=== PATIENT | female | born 1955 | race Caucasian/White ===

== ENCOUNTER 2018-03-23 15:08 | Emergency (ER) | payer BC ==
[2018-03-23] MEDS ORDERED: Iopamidol 612 MG/ML 75 ML Bottle IV PRN (15:30)
[2018-03-23] MEDS ORDERED: Sodium Chloride 0.9% 50 ML IV SCH (15:30)
[2018-03-23] MEDS ORDERED: Sodium Chloride 0.9% 1,000 ML IV ONE (15:34)
--- NOTE | 2018-03-23 15:40 | EDM.PDOC ---
ED HPI GENERAL MEDICAL PROBLEM - General Chief Complaint: Fever Stated Complaint: UTI Time Seen by Provider: 03/23/18 15:21 Source of Information: Reports: Patient History Limitations: Reports: No Limitations - History of Present Illness INITIAL COMMENTS - FREE TEXT/NARRATIVE: Patient presents with low abdominal and low back pain, dysuria and left flank pain, fever and nausea worsening today. Temp at home was 102.1 and 102.7 today. Four days ago she saw her PCP and was diagnosed with a UTI which she is treating with Bactrim DS bid. There has been no improvement in symptoms and today they are worse. She also has a headache today. 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 (see below) Other Treatments AIRCRAFT SYSTEMS TECHNICIAN: antibiotics Headache Pain Score (Numeric/FACES): 8 Lower Back Pain Score (Numeric/FACES): 8 - Related Data Allergies Allergy/AdvReac Type Severity Reaction Status Date / Time No Known Allergies Allergy Verified 03/23/18 15:20 Home Meds: Home Meds Lisinopril 40 mg PO BEDTIME 03/23/18 [History] Simvastatin [Zocor] 40 mg PO BEDTIME 03/23/18 [History] Sulfamethoxazole/Trimethoprim [Sulfamethoxazole-Tmp Ds Tablet] 1 tab PO BID 07/31 [History] Venlafaxine HCl [Venlafaxine ER] 150 mg PO BEDTIME 03/23/18 [History] rOPINIRole [Requip] 2 mg PO BID 03/23/18 [History] Social & Family History - Tobacco Use Smoking Status *Q: Never Smoker Second Hand Smoke Exposure: No - Caffeine Use Caffeine Use: Reports: Coffee, Soda - Recreational Drug Use Recreational Drug Use: No ED ROS GENERAL - Review of Systems Review Of Systems: See Below Constitutional: Reports: Fever, Malaise. Denies: Decreased Appetite HEENT: Reports: No Symptoms Respiratory: Reports: No Symptoms. Denies: Shortness of Breath, Cough Cardiovascular: Reports: Lightheadedness. Denies: Chest Pain, Syncope GI/Abdominal: Reports: Abdominal Pain, Nausea. Denies: Constipation, Diarrhea, Vomiting : Reports: Dysuria, Flank Pain, Frequency, Incontinence (nearly but gets there in time) Musculoskeletal: Reports: No Symptoms Skin: Reports: No Symptoms. Denies: Cyanosis, Jaundice, Mottled, Pallor, Diaphoresis, Erythema, Wound, Lesions Neurological: Reports: Headache. Denies: Confusion, Dizziness, Seizure, Syncope Psychiatric: Denies: Agitation, Anxiety, Confusion ED EXAM, GI/ABD - Physical Exam Exam: See Below Exam Limited By: No Limitations General Appearance: Alert, WD/WN, No Apparent Distress Eyes: Bilateral: Normal Appearance, EOMI Ears: Normal External Exam, Hearing Grossly Normal Nose: Normal Inspection, No Blood Throat/Mouth: Normal Inspection, Normal Lips, Normal Voice, No Airway Compromise Head: Atraumatic, Normocephalic Neck: Normal Inspection, Full Range of Motion Respiratory/Chest: No Respiratory Distress, Lungs Clear, Normal Breath Sounds, No Accessory Muscle Use Cardiovascular: Regular Rate, Rhythm, No Murmur, No Rub GI/Abdominal Exam: Normal Bowel Sounds, No Organomegaly, No Distention, No Abnormal Bruit, Tender (suprapubic, LUQ). No: Guarding, Rigid Back Exam: Full Range of Motion, CVA Tenderness (L), Paraspinal Tenderness ( across lower lumbar). No: CVA Tenderness (R) Extremities: Normal Inspection, Normal Range of Motion Neurological: Alert, Oriented, Normal Cognition, No Motor/Sensory Deficits Psychiatric: Normal Affect, Normal Mood Skin Exam: Warm, Dry, Intact, Normal Color, No Rash Course - Vital Signs Last Recorded V/S: Last Vital Signs Temp 100.8 F H 03/23/18 18:50 Pulse 93 03/23/18 15:16 Resp 16 03/23/18 15:16 BP 119/69 03/23/18 15:16 Pulse Ox 99 03/23/18 15:16 - Orders/Labs/Meds Orders: Active Orders 24 hr Category Date Time Status Abdomen Pelvis w Cont [CT] Stat Exams 03/23/18 15:33 Ordered Head wo Cont [CT] Stat Exams 03/23/18 16:32 Ordered CULTURE BLOOD [BC] Stat Lab 03/23/18 15:33 Ordered CULTURE BLOOD [BC] Stat Lab 03/23/18 15:33 Ordered UA W/MICROSCOPIC [URIN] Stat Lab 03/23/18 15:32 Ordered Blood Culture x2 Reflex Set [OM.PC] Stat Oth 03/23/18 15:32 Ordered Labs: Laboratory Tests 03/23/18 03/23/18 03/23/18 Range/Units 15:55 15:55 15:55 WBC 3.6 L (5.0-10.0) 10^3/uL RBC 4.80 (3.80-5.50) 10^6/uL Hgb 13.4 (12.0-16.0) g/dL Hct 40.4 (37.0-47.0) % MCV 84.0 (82.0-92.0) fL MCH 27.9 (27.0-31.0) pg MCHC 33.2 (32.0-36.0) g/dL RDW 12.4 (11.5-14.5) % Plt Count 173 (150-300) 10^3/uL MPV 7.8 (7.4-10.4) fL Neut % (Auto) Soft Sugar Operator Head Lymph % (Auto) Soft Sugar Operator Head [place] % (Auto) Soft Sugar Operator Head Eos % (Auto) Soft Sugar Operator Head Baso % (Auto) Soft Sugar Operator Head Neut # (Auto) Soft Sugar Operator Head Lymph # (Auto) Soft Sugar Operator Head [place] # (Auto) Soft Sugar Operator Head Eos # (Auto) Soft Sugar Operator Head Baso # (Auto) Soft Sugar Operator Head Add Manual Diff Yes Neutrophils % (Manual) 68 (50-70) % Band Neutrophils % 10 (4-12) % Lymphocytes % (Manual) 10 L (20-40) % Monocytes % (Manual) 6 (2-8) % Eosinophils % (Manual) 6 H (1-3) % Sodium 138 (136-145) mmol/L Potassium 4.5 (3.3-5.3) mmol/L Chloride 103 (98-115) mmol/L Carbon Dioxide 26.5 (21.0-32.0) mmol/L BUN 14 (6-25) mg/dL Creatinine 0.84 (0.51-1.17) mg/dL Est Cr Clr Drug Dosing 64.17 mL/min Estimated GFR (MDRD) > 60 mL/min Glucose 108 (70-110) mg/dL Lactic Acid 1.5 (0.4-2.0) mmol/L Calcium 8.9 (8.7-10.3) mg/dL Total Bilirubin 0.4 (0.2-1.0) mg/dL AST 10 L (15-37) U/L ALT 16 (12-78) U/L Alkaline Phosphatase 132 H (46-116) IU/L Total Protein 7.0 (6.4-8.2) g/dL Albumin 3.64 (3.00-4.80) g/dL Lipase 112 (73-393) U/L Specimen Type Urine Color (YELLOW) Urine Appearance (CLEAR) Urine pH (5.0-9.0) Ur Specific [place] (1.005-1.030) Urine Protein (NEGATIVE) mg/dL Urine Glucose (UA) (NEGATIVE) mg/dL Urine Ketones (NEGATIVE) mg/dL Urine Occult Blood (NEGATIVE) Urine Nitrite (NEGATIVE) Urine Bilirubin (NEGATIVE) Urine Urobilinogen (0.2-1.0) E.U./dL Ur Leukocyte Esterase (NEGATIVE) Urine RBC /HPF Urine WBC /HPF Ur Epithelial Cells /LPF Urine Bacteria (NONE TO FEW) /HPF 03/23/18 Range/Units 16:27 WBC (5.0-10.0) 10^3/uL RBC (3.80-5.50) 10^6/uL Hgb (12.0-16.0) g/dL Hct (37.0-47.0) % MCV (82.0-92.0) fL MCH (27.0-31.0) pg MCHC (32.0-36.0) g/dL RDW (11.5-14.5) % Plt Count (150-300) 10^3/uL MPV (7.4-10.4) fL Neut % (Auto) Lymph % (Auto) [place] % (Auto) Eos % (Auto) Baso % (Auto) Neut # (Auto) Lymph # (Auto) [place] # (Auto) Eos # (Auto) Baso # (Auto) Add Manual Diff Neutrophils % (Manual) (50-70) % Band Neutrophils % (4-12) % Lymphocytes % (Manual) (20-40) % Monocytes % (Manual) (2-8) % Eosinophils % (Manual) (1-3) % Sodium (136-145) mmol/L Potassium (3.3-5.3) mmol/L Chloride (98-115) mmol/L Carbon Dioxide (21.0-32.0) mmol/L BUN (6-25) mg/dL Creatinine (0.51-1.17) mg/dL Est Cr Clr Drug Dosing mL/min Estimated GFR (MDRD) mL/min Glucose (70-110) mg/dL Lactic Acid (0.4-2.0) mmol/L Calcium (8.7-10.3) mg/dL Total Bilirubin (0.2-1.0) mg/dL AST (15-37) U/L ALT (12-78) U/L Alkaline Phosphatase (46-116) IU/L Total Protein (6.4-8.2) g/dL Albumin (3.00-4.80) g/dL Lipase (73-393) U/L Specimen Type Urinmid Urine Color Yellow (YELLOW) Urine Appearance Clear (CLEAR) Urine pH 5.0 (5.0-9.0) Ur Specific [place] >= 1.030 (1.005-1.030) Urine Protein Negative (NEGATIVE) mg/dL Urine Glucose (UA) Negative (NEGATIVE) mg/dL Urine Ketones 15 H (NEGATIVE) mg/dL Urine Occult Blood Small H (NEGATIVE) Urine Nitrite Negative (NEGATIVE) Urine Bilirubin Negative (NEGATIVE) Urine Urobilinogen 1.0 (0.2-1.0) E.U./dL Ur Leukocyte Esterase Negative (NEGATIVE) Urine RBC 5-10 H /HPF Urine WBC 0-5 /HPF Ur Epithelial Cells Few /LPF Urine Bacteria Few (NONE TO FEW) /HPF Meds: Medications Discontinued Medications Generic Name Dose Route Start Last Admin Trade Name Freq PRN Reason Stop Dose Admin Acetaminophen 1,000 mg 03/23/18 18:15 03/23/18 18:20 Tylenol Extra Strength PO 03/23/18 18:16 1,000 mg ONETIME ONE Administration Diphenhydramine HCl 50 mg 03/23/18 19:07 03/23/18 19:26 Benadryl IVPUSH 03/23/18 19:08 50 mg ONETIME ONE Administration Sodium Chloride 1,000 mls @ 999 mls/hr 03/23/18 15:34 03/23/18 15:45 Normal Saline IV 03/23/18 16:34 999 mls/hr .BOLUS ONE Administration Ketorolac Tromethamine 30 mg 03/23/18 19:07 03/23/18 19:19 Toradol IVPUSH 03/23/18 19:08 30 mg ONETIME ONE Administration Ondansetron HCl 4 mg 03/23/18 19:07 03/23/18 19:21 Zofran IVPUSH 03/23/18 19:08 4 mg ONETIME ONE Administration - Re-Assessments/Exams Free Text/Narrative Re-Assessment/Exam: 03/23/18 16:32 CBC and BMP are okay, WBC is low at 3.6. UA pending. Patient says nausea is not bad but her headache is still bad. She says this is the worst headache she has ever had. She doesn't get headaches or migraines. She rates it at 7/10 now. We will get a head CT as well as the CT abd/pelvis. 03/23/18 19:19 CTs of head, abd/pelvis are negative for acute findings. Headache is unchanged after 1 gm of Tylenol for the fever but temp is down from 102 to 100.8 now. Will give migraine cocktail now. Lab ran manual diff to give me percentage of bands which are normal at 10%. 03/23/18 20:02 Headache is down to 4/10. Discussed case with Marily Mays NP who is okay with patient going home with follow up tomorrow in clinic or in two days, since Rosalinda is out tomorrow, as long as she isn't worse. Discussed findings and plan with patient who is agreeable with this. Temp is down to 100.2 Departure - Departure Time of Disposition: 20:00 Disposition: Home, Self-Care 01 Condition: Good Clinical Impression: FUO (fever of unknown origin), Headache above the eye region - Discharge Information Referrals: Rosalinda Horowitz PA-C [Primary Care Provider] - Forms: ED Department Discharge Additional Instructions: 1. Drink 8 cups of water daily. 2. Continue your Bactrim until completed. 3. Follow up with your PCP in 1-2 days. 4. Recheck FRED if worsening. - My Orders Last 24 Hours: My Active Orders 03/23/18 15:32 UA W/MICROSCOPIC [URIN] Stat Blood Culture x2 Reflex Set [OM.PC] Stat 03/23/18 15:33 Abdomen Pelvis w Cont [CT] Stat CULTURE BLOOD [BC] Stat CULTURE BLOOD [BC] Stat 03/23/18 16:32 Head wo Cont [CT] Stat - Assessment/Plan Last 24 Hours: My Active Orders 03/23/18 15:32 UA W/MICROSCOPIC [URIN] Stat Blood Culture x2 Reflex Set [OM.PC] Stat 03/23/18 15:33 Abdomen Pelvis w Cont [CT] Stat CULTURE BLOOD [BC] Stat CULTURE BLOOD [BC] Stat 03/23/18 16:32 Head wo Cont [CT] Stat
[2018-03-23 16:26] LABS: CHLORIDE,CL 103 mmol/L (98-115); SODIUM,NA 138 mmol/L (136-145)
[2018-03-23] MEDS ORDERED: Acetaminophen 500 MG Tab PO ONE (18:15)
[2018-03-23] MEDS ORDERED: diphenhydrAMINE 50 MG/ML SDV IVPUSH ONE (19:07)
[2018-03-23] MEDS ORDERED: Ketorolac 30 MG/ML SDV IVPUSH ONE (19:07)
[2018-03-23] MEDS ORDERED: Ondansetron 4 MG/2 ML SDV IVPUSH ONE (19:07)
== END 2018-03-23 20:25 | disposition home or self-care (01) ==
LOC: KA.ED 15:08
DX: R50.9 Fever, unspecified (principal); R51 Headache
CPT/HCPCS: 70450; 74177; 80053; 81001; 83605; 83690; 85025; 87040; 96361; 96374; 96375; 99284; A9270; J1200; J1885; J2405; J7030; J7050; Q9967

== ENCOUNTER 2020-02-16 10:13 | Emergency (ER) | payer MEDICARE, BC, OTHER ==
[2020-02-16] MEDS ORDERED: Sodium Chloride 0.9% 1,000 ML IV ONE (10:48)
[2020-02-16] MEDS ORDERED: Ondansetron 4 MG/2 ML SDV IVPUSH ONE (10:52)
--- NOTE | 2020-02-16 11:02 | EDM.PDOC ---
ED HPI GENERAL MEDICAL PROBLEM - General Chief Complaint: General Stated Complaint: FEVER/BODY ACHES Time Seen by Provider: 02/16/20 10:35 Source of Information: Reports: Patient History Limitations: Reports: No Limitations - History of Present Illness INITIAL COMMENTS - FREE TEXT/NARRATIVE: 64 YO WF presents to ER with complaints of fever/chills and body aches which began 4 days ago. Pt reports she was outside all day on Saturday02/12/2020 with her grandson and that evening developed fever/chills but related it to sun exposure at that time. Pt reports she feels weak, nauseated, with joint pain and fever/chills. Pt denies cough/congestion, no shortness of breath, no chest or back pain, no dysuria or urinary frequency. Pt denies abdominal pain or headache/neck pain. Pt with PMH of HTN, Dyslipidemia, Restless leg syndrome. Onset Date: 02/12/20 Duration: Day(s): (4) Location: Reports: Generalized Quality: Reports: Ache Severity: Mild Improves with: Reports: None Worsens with: Reports: None Associated Symptoms: Reports: Fever/Chills, Malaise, Nausea/Vomiting, Weakness. 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 Pain Score (Numeric/FACES): 3 - Related Data Allergies Allergy/AdvReac Type Severity Reaction Status Date / Time No Known Allergies Allergy Verified 02/16/20 10:50 Home Meds: Home Meds Lisinopril 40 mg PO BEDTIME 03/23/18 [History] Venlafaxine HCl [Venlafaxine ER] 150 mg PO BEDTIME 03/23/18 [History] rOPINIRole [Requip] 2 mg PO BID 03/23/18 [History] Aspirin [Aspirin EC] 81 mg PO DAILY 02/16/20 [History] Simvastatin [Zocor] 30 mg PO BEDTIME 02/16/20 [History] hydroCHLOROthiazide [Hydrochlorothiazide] 25 mg PO DAILY 02/16/20 [History] Past Medical History HEENT History: Reports: Impaired Vision Cardiovascular History: Reports: High Cholesterol, Hypertension Gastrointestinal History: Reports: None Genitourinary History: Reports: None Musculoskeletal History: Reports: Arthritis Neurological History: Reports: None Psychiatric History: Reports: None - Infectious Disease History Infectious Disease History: Reports: Chicken Pox, Measles, Mumps - Past Surgical History Head Surgeries/Procedures: Reports: None Cardiovascular Surgical History: Reports: None GI Surgical History: Reports: Appendectomy, Cholecystectomy, Colonoscopy Female Surgical History: Reports: Section Neurological Surgical History: Reports: None Musculoskeletal Surgical History: Reports: Arthroscopic Knee Dermatological Surgical History: Reports: None Social & Family History - Family History Family Medical History: Noncontributory - Caffeine Use Caffeine Use: Reports: Coffee, Soda ED ROS GENERAL - Review of Systems Review Of Systems: See Below Constitutional: Reports: Fever, Chills, Malaise, Weakness. Denies: Night Sweats HEENT: Reports: No Symptoms Respiratory: Reports: No Symptoms Cardiovascular: Reports: No Symptoms Endocrine: Reports: No Symptoms GI/Abdominal: Reports: Nausea. Denies: Abdominal Pain, Black Stool, Bloody Stool, Constipation, Diarrhea : Reports: No Symptoms Musculoskeletal: Reports: Leg Pain, Joint Pain, Muscle Pain. Denies: Back Pain Skin: Reports: No Symptoms Neurological: Reports: No Symptoms Psychiatric: Reports: No Symptoms Hematologic/Lymphatic: Reports: No Symptoms Immunologic: Reports: No Symptoms ED EXAM, GENERAL - Physical Exam Exam: See Below Exam Limited By: No Limitations General Appearance: Alert, WD/WN, No Apparent Distress Eye Exam: Bilateral Eye: PERRL Ears: Normal External Exam, Normal Canal, Hearing Grossly Normal, Normal TMs Nose: Normal Inspection, Normal Mucosa, No Blood Throat/Mouth: Normal Inspection, Normal Lips, Normal Teeth, Normal Gums, Normal Oropharynx, Normal Voice, No Airway Compromise Head: Atraumatic, Normocephalic Neck: Normal Inspection, Supple, Non-Tender, Full Range of Motion Respiratory/Chest: No Respiratory Distress, Lungs Clear, Normal Breath Sounds, No Accessory Muscle Use, Chest Non-Tender Cardiovascular: Normal Peripheral Pulses, Regular Rate, Rhythm, No Edema, No Gallop, No JVD, No Murmur, No Rub GI/Abdominal: Normal Bowel Sounds, Soft, Non-Tender, No Organomegaly, No Distention, No Abnormal Bruit, No Mass Back Exam: Normal Inspection, Full Range of Motion, NT Extremities: Normal Inspection, Normal Range of Motion, Non-Tender, Normal Capillary Refill, No Pedal Edema Neurological: Alert, Oriented, CN II-XII Intact, Normal Cognition, Normal Gait, Normal Reflexes, No Motor/Sensory Deficits Psychiatric: Normal Affect, Normal Mood Skin Exam: Warm, Dry, Intact, Normal Color, No Rash Lymphatic: No Adenopathy Course - Vital Signs Last Recorded V/S: Last Vital Signs Temp 37.4 C 02/16/20 11:54 Pulse 78 02/16/20 11:54 Resp 14 02/16/20 11:54 BP 125/74 02/16/20 11:54 Pulse Ox 97 02/16/20 11:54 - Orders/Labs/Meds Orders: Active Orders 24 hr Category Date Time Status CORONAVIRUS COVID-19 PCR PHL Stat Lab 02/16/20 10:48 Ordered Isolation [COMM] Routine Oth 02/16/20 10:48 Ordered Labs: Laboratory Tests 02/16/20 02/16/20 02/16/20 Range/Units 10:35 10:35 10:35 WBC 4.98 L (5.00-10.00) 10^3/uL RBC 4.24 (3.80-5.50) 10^6/uL Hgb 12.3 (12.0-16.0) g/dL Hct 37.8 (37.0-47.0) % MCV 89.2 D (82.0-92.0) fL MCH 29.0 (27.0-31.0) pg MCHC 32.5 (32.0-36.0) g/dL RDW 12.5 (11.5-14.5) % Plt Count 170 (150-400) 10^3/uL MPV 10.5 H (7.4-10.4) fL Immature Gran % (Auto) 0.4 (0.0-5.0) % Neut % (Auto) 84.4 H (50.0-70.0) % Lymph % (Auto) 7.8 L (20.0-40.0) % [place] % (Auto) 4.4 (2.0-8.0) % Eos % (Auto) 2.6 (1.0-3.0) % Baso % (Auto) 0.4 (0.0-1.0) % Neut # (Auto) 4.20 (2.50-7.00) 10^3/uL Lymph # (Auto) 0.39 L (1.00-4.00) 10^3/uL [place] # (Auto) 0.22 (0.10-0.80) 10^3/uL Eos # (Auto) 0.13 (0.10-0.30) 10^3/uL Baso # (Auto) 0.02 (0.00-0.10) 10^3/uL Immature Gran # (Auto) 0.02 (0.00-0.50) 10^3/uL Sodium 142 (136-145) mmol/L Potassium 3.9 (3.3-5.3) mmol/L Chloride 103 (98-115) mmol/L Carbon Dioxide 27.2 (21.0-32.0) mmol/L Anion Gap 15.7 H (5-15) mmol/L BUN 21 (6-25) mg/dL Creatinine 0.75 (0.51-1.17) mg/dL Est Cr Clr Drug Dosing TNP Estimated GFR (MDRD) > 60 mL/min Glucose 132 H (75 - 99) mg/dL Calcium 9.0 (8.7-10.3) mg/dL Total Bilirubin 0.8 (0.2-1.0) mg/dL AST 71 H (15-37) U/L ALT 181 H (12-78) U/L Alkaline Phosphatase 258 H (46-116) IU/L Creatine Kinase 19 L (26-276) U/L CK-MB (CK-2) < 0.50 (0.00-4.30) ng/mL Total Protein 6.5 (6.4-8.2) g/dL Albumin 3.06 (3.00-4.80) g/dL Specimen Type Urine Color (YELLOW) Urine Appearance (CLEAR) Urine pH (5.0-9.0) Ur Specific [place] (1.005-1.030) Urine Protein (NEGATIVE) mg/dL Urine Glucose (UA) (NEGATIVE) mg/dL Urine Ketones (NEGATIVE) mg/dL Urine Occult Blood (NEGATIVE) Urine Nitrite (NEGATIVE) Urine Bilirubin (NEGATIVE) Urine Urobilinogen (0.2-1.0) E.U./dL Ur Leukocyte Esterase (NEGATIVE) Urine RBC (0-5) /HPF Urine WBC (0-5) /HPF Ur Epithelial Cells /LPF Urine Bacteria (NONE TO FEW) /HPF Urine Mucus (NEGATIVE) /LPF 02/16/20 Range/Units 11:10 WBC (5.00-10.00) 10^3/uL RBC (3.80-5.50) 10^6/uL Hgb (12.0-16.0) g/dL Hct (37.0-47.0) % MCV (82.0-92.0) fL MCH (27.0-31.0) pg MCHC (32.0-36.0) g/dL RDW (11.5-14.5) % Plt Count (150-400) 10^3/uL MPV (7.4-10.4) fL Immature Gran % (Auto) (0.0-5.0) % Neut % (Auto) (50.0-70.0) % Lymph % (Auto) (20.0-40.0) % [place] % (Auto) (2.0-8.0) % Eos % (Auto) (1.0-3.0) % Baso % (Auto) (0.0-1.0) % Neut # (Auto) (2.50-7.00) 10^3/uL Lymph # (Auto) (1.00-4.00) 10^3/uL [place] # (Auto) (0.10-0.80) 10^3/uL Eos # (Auto) (0.10-0.30) 10^3/uL Baso # (Auto) (0.00-0.10) 10^3/uL Immature Gran # (Auto) (0.00-0.50) 10^3/uL Sodium (136-145) mmol/L Potassium (3.3-5.3) mmol/L Chloride (98-115) mmol/L Carbon Dioxide (21.0-32.0) mmol/L Anion Gap (5-15) mmol/L BUN (6-25) mg/dL Creatinine (0.51-1.17) mg/dL Est Cr Clr Drug Dosing Estimated GFR (MDRD) mL/min Glucose (75 - 99) mg/dL Calcium (8.7-10.3) mg/dL Total Bilirubin (0.2-1.0) mg/dL AST (15-37) U/L ALT (12-78) U/L Alkaline Phosphatase (46-116) IU/L Creatine Kinase (26-276) U/L CK-MB (CK-2) (0.00-4.30) ng/mL Total Protein (6.4-8.2) g/dL Albumin (3.00-4.80) g/dL Specimen Type Urinvoid Urine Color Dark yellow H (YELLOW) Urine Appearance Clear (CLEAR) Urine pH 7.0 (5.0-9.0) Ur Specific [place] 1.015 (1.005-1.030) Urine Protein Negative (NEGATIVE) mg/dL Urine Glucose (UA) 100 H (NEGATIVE) mg/dL Urine Ketones 15 H (NEGATIVE) mg/dL Urine Occult Blood Negative (NEGATIVE) Urine Nitrite Negative (NEGATIVE) Urine Bilirubin Small H (NEGATIVE) Urine Urobilinogen >=8.0 H (0.2-1.0) E.U./dL Ur Leukocyte Esterase Negative (NEGATIVE) Urine RBC 0-5 (0-5) /HPF Urine WBC 0-5 (0-5) /HPF Ur Epithelial Cells Few /LPF Urine Bacteria Occasional (NONE TO FEW) /HPF Urine Mucus Occasional H (NEGATIVE) /LPF Meds: Medications Discontinued Medications Generic Name Dose Route Start Last Admin Trade Name Freq PRN Reason Stop Dose Admin Sodium Chloride 1,000 mls @ 999 mls/hr 02/16/20 10:48 02/16/20 11:05 Normal Saline IV 02/16/20 11:48 999 mls/hr .BOLUS ONE Administration Ondansetron HCl 4 mg 02/16/20 10:52 02/16/20 11:05 Zofran IVPUSH 02/16/20 10:53 4 mg ONETIME ONE Administration - Radiology Interpretation Free Text/Narrative:: CXR- NAD - Re-Assessments/Exams Free Text/Narrative Re-Assessment/Exam: 02/16/20 12:[address] Darian German- selena hendrix and follow up in clinic saturday02/19/2020 Departure - Departure Time of Disposition: 12:21 Disposition: Home, Self-Care 01 Condition: Fair Clinical Impression: Viral syndrome, Elevated liver function tests - Discharge Information Instructions: Viral Illness, Adult, Liver Function Tests Referrals: Rosalinda Horowitz PA-C [Primary Care Provider] - Forms: ED Department Discharge Additional Instructions: 1. discharge home 2. awaiting COVID test results- quarantine until test is negative 3. follow up on 02/19/2020 with Rosalinda Horowitz for telemedicine appointment 4. hold Zocor 5. plenty of fluids 6. Motrin/Tylenol for fever/body aches 7. return to ER for worsening symptoms Sepsis Event Note - Focused Exam Vital Signs: Vital Signs Temp Pulse Resp BP Pulse Ox 02/16/20 11:54 37.4 C 78 14 125/74 97 02/16/20 10:15 36.7 C 94 14 125/60 95 Date Exam was Performed: 02/16/20 Time Exam was Performed: 12:18 - My Orders Last 24 Hours: My Active Orders 02/16/20 10:48 CORONAVIRUS COVID-19 PCR PHL Stat Isolation [COMM] Routine - Assessment/Plan Last 24 Hours: My Active Orders 02/16/20 10:48 CORONAVIRUS COVID-19 PCR PHL Stat Isolation [COMM] Routine Assessment:: 1. Viral syndrome 2. elevated LFTs Plan: 1. discharge home 2. awaiting COVID test results- quarantine until test is negative 3. follow up on 02/19/2020 with Rsoalinda Horowitz for telemedicine appointment 4. hold Zocor 5. plenty of fluids 6. Motrin/Tylenol for fever/body aches 7. return to ER for worsening symptoms
[2020-02-16 11:19] LABS: ANION GAP 15.7 mmol/L (5-15); CHLORIDE,CL 103 mmol/L (98-115); SODIUM,NA 142 mmol/L (136-145)
--- NOTE | 2020-02-16 11:30 | CR ---
[id number] RAD/RAD Chest PA And Lateral EXAM: RAD Chest PA And Lateral INDICATION: FEVER. COMPARISON: None. DISCUSSION: Cardiomediastinal silhouette is normal in size and contour. No infiltrate, effusion, pneumothorax, or edema. IMPRESSION: No acute cardiopulmonary abnormality. Carl Chaparro DO 02/16/20 1129 Thank you for allowing us to participate in the care of your patient.
== END 2020-02-16 12:40 | disposition home or self-care (01) ==
LOC: KA.ED 10:13
DX: B34.9 Viral infection, unspecified (principal); R79.89 Other specified abnormal findings of blood chemistry; E78.00 Pure hypercholesterolemia, unspecified; I10 Essential (primary) hypertension; M19.90 Unspecified osteoarthritis, unspecified site; Z79.82 Long term (current) use of aspirin; Z79.899 Other long term (current) drug therapy; Z20.828 Contact with and (suspected) exposure to other viral communicable diseases
CPT/HCPCS: 71046; 80053; 81001; 82550; 82553; 85025; 87804; 96361; 96374; 99283; 99284; J2405; J7030; U0002

== ENCOUNTER 2020-10-03 10:05 | Emergency (ER) | payer MEDICARE, BC ==
--- NOTE | 2020-10-03 10:26 | EDM.PDOC ---
ED HPI GENERAL MEDICAL PROBLEM - General Chief Complaint: Syncope Stated Complaint: DIZZINESSS,LIGHT HEADED,LWR L ABD PX Time Seen by Provider: 10/03/20 10:26 Source of Information: Reports: Patient History Limitations: Reports: No Limitations - History of Present Illness INITIAL COMMENTS - FREE TEXT/NARRATIVE: Lisa, 64-year-old female, presents by private vehicle from [facility], presenting for therapy on her knee replacement from July 2020. She was doing leg pushes, 60 pounds to the lower extremities when she became extremely dizzy mildly nauseated and near syncope. Has some breathing concern that predominantly resolved but continues to feel lightheaded weak, and fatigued. Denies any trauma. Denies any headache or visual changes. Has not eaten or taken medications this morning. Had been feeling well up until the event this morning. Onset: Today Duration: Minutes: Location: Reports: Head, Abdomen Severity: Moderate Improves with: Reports: None Worsens with: Reports: Movement Context: Reports: Exercise Associated Symptoms: Reports: No Other Symptoms Headache Pain Score (Numeric/FACES): 5 - Related Data Allergies Allergy/AdvReac Type Severity Reaction Status Date / Time Sulfa (Sulfonamide Allergy Severe Anaphylactic Verified 10/03/20 11:12 Antibiotics) Shock Home Meds: Home Meds Lisinopril 40 mg PO BEDTIME 03/23/18 [History] Venlafaxine HCl [Venlafaxine ER] 150 mg PO BEDTIME 03/23/18 [History] rOPINIRole [Requip] 2 mg PO BID 03/23/18 [History] Aspirin [Aspirin EC] 81 mg PO DAILY 02/16/20 [History] Simvastatin [Zocor] 30 mg PO BEDTIME 02/16/20 [History] hydroCHLOROthiazide [Hydrochlorothiazide] 25 mg PO DAILY 02/16/20 [History] Past Medical History HEENT History: Reports: Impaired Vision Cardiovascular History: Reports: High Cholesterol, Hypertension Gastrointestinal History: Reports: None Genitourinary History: Reports: None 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: Musculoskeletal History: Reports: Arthritis Neurological History: Reports: None Psychiatric History: Reports: None Endocrine/Metabolic History: Reports: Obesity/BMI 30+ - Infectious Disease History Infectious Disease History: Reports: Chicken Pox, Measles, Mumps - Past Surgical History Head Surgeries/Procedures: Reports: None Cardiovascular Surgical History: Reports: None GI Surgical History: Reports: Appendectomy, Cholecystectomy, Colonoscopy Female Surgical History: Reports: Section Neurological Surgical History: Reports: None Musculoskeletal Surgical History: Reports: Arthroscopic Knee, Knee Replacement Dermatological Surgical History: Reports: None Social & Family History - Family History Family Medical History: No Pertinent Family History - Caffeine Use Caffeine Use: Reports: Coffee, Soda ED ROS GENERAL - Review of Systems Review Of Systems: Comprehensive ROS is negative, except as noted in HPI. ED EXAM, GENERAL - Physical Exam Exam: See Below General Appearance: Alert, WD/WN, No Apparent Distress Ears: Normal External Exam, Normal Canal, Hearing Grossly Normal, Normal TMs Nose: Normal Inspection Throat/Mouth: Normal Inspection, Normal Lips, Normal Teeth, Normal Gums, Normal Oropharynx, Normal Voice, No Airway Compromise Head: Atraumatic, Normocephalic Neck: Normal Inspection, Supple, Non-Tender, Full Range of Motion Respiratory/Chest: No Respiratory Distress, Lungs Clear, Normal Breath Sounds, No Accessory Muscle Use, Chest Non-Tender Cardiovascular: Normal Peripheral Pulses, Regular Rate, Rhythm, No Edema, No Gallop, No JVD, No Murmur, No Rub GI/Abdominal: Normal Bowel Sounds, Soft, Non-Tender, No Organomegaly, No Distention, No Abnormal Bruit, No Mass (Female) Exam: Deferred Rectal (Female) Exam: Deferred Back Exam: Normal Inspection, Full Range of Motion, NT Extremities: Normal Inspection, Normal Range of Motion, Non-Tender, No Pedal Edema, Normal Capillary Refill Neurological: Alert, Oriented, CN II-XII Intact, Normal Cognition, Normal Gait, Normal Reflexes, No Motor/Sensory Deficits Psychiatric: Normal Affect, Normal Mood Skin Exam: Warm, Dry, Intact, Normal Color, No Rash Lymphatic: No Adenopathy #1 Interpretation EKG Date: 10/03/20 Time: 10:42 Rhythm: NSR Rate (Beats/Min): 66 [place]: Normal P-Wave: Present QRS: Normal ST-T: Normal QT: Normal Comparison: NA - No Prior EKG Course - Vital Signs Last Recorded V/S: Last Vital Signs Temp 97.8 F 10/03/20 12:13 Pulse 69 10/03/20 12:13 Resp 18 10/03/20 12:13 BP 166/76 H 10/03/20 12:13 Pulse Ox 99 10/03/20 12:13 - Orders/Labs/Meds Orders: Active Orders 24 hr Category Date Time Status EKG Documentation Completion [RC] ASDIRECTED Care 10/03/20 10:32 Active Peripheral IV Care [RC] . DIRECTED Care 10/03/20 10:34 Active Sodium Chloride 0.9% [Saline Flush] Med 10/03/20 10:34 Active 10 ml FLUSH Q8HR PRN Peripheral IV Insertion Adult [OM.PC] Routine Oth 10/03/20 10:34 Ordered EKG 12 Lead [EK] Urgent Ther 10/03/20 10:32 Ordered Medication Orders Sodium Chloride (Saline Flush) 10 ml FLUSH Q8HR PRN PRN Reason: keep vein open Labs: Laboratory Tests 10/03/20 10/03/20 10/03/20 Range/Units 10:55 10:55 11:36 WBC 5.61 (5.00-10.00) 10^3/uL RBC 4.51 (3.80-5.50) 10^6/uL Hgb 12.8 (12.0-16.0) g/dL Hct 40.7 (37.0-47.0) % MCV 90.2 (82.0-92.0) fL MCH 28.4 (27.0-31.0) pg MCHC 31.4 L (32.0-36.0) g/dL RDW 12.4 (11.5-14.5) % Plt Count 197 (150-400) 10^3/uL MPV 9.2 (7.4-10.4) fL Immature Gran % (Auto) 0.2 (0.0-5.0) % Neut % (Auto) 74.1 H (50.0-70.0) % Lymph % (Auto) 18.2 L (20.0-40.0) % [place] % (Auto) 5.3 (2.0-8.0) % Eos % (Auto) 1.8 (1.0-3.0) % Baso % (Auto) 0.4 (0.0-1.0) % Neut # (Auto) 4.16 (2.50-7.00) 10^3/uL Lymph # (Auto) 1.02 (1.00-4.00) 10^3/uL [place] # (Auto) 0.30 (0.10-0.80) 10^3/uL Eos # (Auto) 0.10 (0.10-0.30) 10^3/uL Baso # (Auto) 0.02 (0.00-0.10) 10^3/uL Immature Gran # (Auto) 0.01 (0.00-0.50) 10^3/uL Sodium 140 (136-145) mmol/L Potassium 4.2 (3.3-5.3) mmol/L Chloride 103 (98-115) mmol/L Carbon Dioxide 28.1 (21.0-32.0) mmol/L Anion Gap 13.1 (5-15) mmol/L BUN 20 (6-25) mg/dL Creatinine 0.74 (0.51-1.17) mg/dL Est Cr Clr Drug Dosing 68.20 mL/min Estimated GFR (MDRD) > 60 mL/min Glucose 111 H (75 - 99) mg/dL Calcium 9.2 (8.7-10.3) mg/dL Total Bilirubin 0.5 (0.2-1.0) mg/dL AST 11 L (15-37) U/L ALT 23 (12-78) U/L Alkaline Phosphatase 118 H (46-116) IU/L Creatine Kinase 41 (26-276) U/L CK-MB (CK-2) < 0.50 (0.00-4.30) ng/mL Troponin I < 0.04 (0.00-0.070) ng/mL Total Protein 6.9 (6.4-8.2) g/dL Albumin 3.69 (3.00-4.80) g/dL Amylase 24 L (25-125) U/L Lipase 35 L (73-393) U/L Specimen Type Urincc Urine Color Yellow (YELLOW) Urine Appearance Clear (CLEAR) Urine pH 7.0 (5.0-9.0) Ur Specific [place] 1.025 (1.005-1.030) Urine Protein Negative (NEGATIVE) mg/dL Urine Glucose (UA) Negative (NEGATIVE) mg/dL Urine Ketones Negative (NEGATIVE) mg/dL Urine Occult Blood Negative (NEGATIVE) Urine Nitrite Negative (NEGATIVE) Urine Bilirubin Negative (NEGATIVE) Urine Urobilinogen 0.2 (0.2-1.0) E.U./dL Ur Leukocyte Esterase Negative (NEGATIVE) Meds: Medications Generic Name Dose Route Start Last Admin Trade Name Freq PRN Reason Stop Dose Admin Sodium Chloride 10 ml 10/03/20 10:34 Saline Flush FLUSH Q8HR PRN keep vein open Discontinued Medications Generic Name Dose Route Start Last Admin Trade Name Freq PRN Reason Stop Dose Admin Sodium Chloride 1,000 mls @ 999 mls/hr 10/03/20 10:34 10/03/20 10:50 Normal Saline IV 10/03/20 11:34 999 mls/hr .BOLUS ONE Administration Ondansetron HCl 4 mg 10/03/20 10:36 10/03/20 10:50 Zofran IVPUSH 10/03/20 10:37 4 mg ONETIME ONE Administration - Re-Assessments/Exams Free Text/Narrative Re-Assessment/Exam: 10/03/20 12:45 Discussed the likelihood of a vasovagal maneuver as she was straining for her exercise. Departure - Departure Time of Disposition: 12:14 Disposition: Home, Self-Care 01 Condition: Good Clinical Impression: Vaso vagal episode, Elevated liver function tests, Dizziness - Discharge Information *PRESCRIPTION DRUG MONITORING PROGRAM REVIEWED*: Not Applicable *COPY OF PRESCRIPTION DRUG MONITORING REPORT IN PATIENT PERRY: Not Applicable Instructions: Near-Syncope, [id number] Referrals: Rosalinda Horowitz PA-C [Primary Care Provider] - Forms: ED Department Discharge Additional Instructions: Go home and rest. Make sure you take your medications and have something to eat as soon as possible. Increase your fluid intake. Continue with therapy and exercises as able. Follow-up with your clinic or return to the emergency department if symptoms recur. It is very likely that this was a vasovagal situation secondary the fact you were compressing pushing with your leg and strenuous repetitious event. Sepsis Event Note (ED) - Focused Exam Vital Signs: Vital Signs Temp Pulse Resp BP Pulse Ox 10/03/20 12:13 97.8 F 69 18 166/76 H 99 10/03/20 11:37 97.9 F 61 18 170/83 H 99 10/03/20 10:10 96.8 F L 70 18 160/77 H 99 - Problem List & Annotations (1) Dizziness SNOMED Code(s): 660883597, 419186645 Code(s): R42 - DIZZINESS AND GIDDINESS Status: Acute Priority: High Current Visit: Yes (2) Vaso vagal episode SNOMED Code(s): 531946541 Code(s): R55 - SYNCOPE AND COLLAPSE Status: Acute Priority: High Current Visit: Yes (3) Elevated alkaline phosphatase measurement SNOMED Code(s): 219997946 Code(s): R74.8 - ABNORMAL LEVELS OF OTHER SERUM ENZYMES Status: Chronic Priority: Medium Current Visit: Yes Annotation/Comment:: Possibly secondary of bone reconstruction, after knee replacement. - Problem List Review Problem List Initiated/Reviewed/Updated: Yes - My Orders Last 24 Hours: My Active Orders 10/03/20 10:32 EKG Documentation Completion [RC] ASDIRECTED EKG 12 Lead [EK] Urgent 10/03/20 10:34 Peripheral IV Care [RC] . DIRECTED Sodium Chloride 0.9% [Saline Flush] 10 ml FLUSH Q8HR PRN Peripheral IV Insertion Adult [OM.PC] Routine - Assessment/Plan Last 24 Hours: My Active Orders 10/03/20 10:32 EKG Documentation Completion [RC] ASDIRECTED EKG 12 Lead [EK] Urgent 10/03/20 10:34 Peripheral IV Care [RC] . DIRECTED Sodium Chloride 0.9% [Saline Flush] 10 ml FLUSH Q8HR PRN Peripheral IV Insertion Adult [OM.PC] Routine Plan: Go home and rest. Make sure you take your medications and have something to eat as soon as possible. Increase your fluid intake. Continue with therapy and exercises as able. Follow-up with your clinic or return to the emergency department if symptoms recur. It is very likely that this was a vasovagal situation secondary the fact you were compressing pushing with your leg and strenuous repetitious event.
[2020-10-03] MEDS ORDERED: Sodium Chloride 0.9% 1,000 ML IV ONE (10:34)
[2020-10-03] MEDS ORDERED: Sodium Chloride 0.9% 10 ML Syringe FLUSH PRN (10:34)
[2020-10-03] MEDS ORDERED: Ondansetron 4 MG/2 ML SDV IVPUSH ONE (10:36)
[2020-10-03 11:46] LABS: ANION GAP 13.1 mmol/L (5-15); CHLORIDE,CL 103 mmol/L (98-115); SODIUM,NA 140 mmol/L (136-145)
== END 2020-10-03 12:35 | disposition home or self-care (01) ==
LOC: KA.ED 10:05
DX: R55 Syncope and collapse (principal); R79.89 Other specified abnormal findings of blood chemistry; R11.0 Nausea; R53.83 Other fatigue; I10 Essential (primary) hypertension; E78.00 Pure hypercholesterolemia, unspecified; E66.9 Obesity, unspecified; Z88.2 Allergy status to sulfonamides; Z79.82 Long term (current) use of aspirin; Z79.899 Other long term (current) drug therapy; Z90.49 Acquired absence of other specified parts of digestive tract; Z68.39 Body mass index [BMI] 39.0-39.9, adult
CPT/HCPCS: 36415; 80053; 81003; 82150; 82550; 82553; 83690; 84484; 85025; 93005; 96374; 99284; 99284-25; J2405; J7030

== ENCOUNTER 2021-05-13 12:28 | Emergency (ER) | payer MEDICARE, BC ==
--- NOTE | 2021-05-13 12:46 | EDM.PDOC ---
ED HPI GENERAL MEDICAL PROBLEM - General Chief Complaint: General Stated Complaint: VERY DIZZY Time Seen by Provider: 05/13/21 12:46 Source of Information: Reports: Patient History Limitations: Reports: No Limitations - History of Present Illness INITIAL COMMENTS - FREE TEXT/NARRATIVE: Lisa, 65-year-old female, presents per private vehicle accompanied by her friend with severe dizziness and headache. She states she woke early this morning secondary of the event which started while sleeping. She states she has been in bed all morning as she cannot move secondary of severe dizziness. She states the dizziness feels like it is in the back of her head. Headache is similar to previous headaches in the location but states she has never had a headache this severe before. Denies any change in dietary intake or risk for dehydration. Denies any falls or sudden jarring motions that would cause a labyrinthitis. Denies any neck pain or other contributing factors and is fully compliant on all of her medications. 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 - Related Data Allergies Allergy/AdvReac Type Severity Reaction Status Date / Time Sulfa (Sulfonamide Allergy Severe Anaphylactic Verified 05/13/21 12:38 Antibiotics) Shock Home Meds: Home Meds Lisinopril 40 mg PO BEDTIME 03/23/18 [History] Venlafaxine HCl [Venlafaxine ER] 150 mg PO BEDTIME 03/23/18 [History] rOPINIRole [Requip] 2 mg PO BID 03/23/18 [History] Aspirin [Aspirin EC] 81 mg PO DAILY 02/16/20 [History] Simvastatin [Zocor] 30 mg PO BEDTIME 02/16/20 [History] hydroCHLOROthiazide [Hydrochlorothiazide] 25 mg PO DAILY 02/16/20 [History] Past Medical History HEENT History: Reports: Impaired Vision Cardiovascular History: Reports: High Cholesterol, Hypertension Gastrointestinal History: Reports: None Genitourinary History: Reports: None 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: Musculoskeletal History: Reports: Arthritis Neurological History: Reports: None Psychiatric History: Reports: None Endocrine/Metabolic History: Reports: Obesity/BMI 30+ Immunologic History: Reports: None - Infectious Disease History Infectious Disease History: Reports: Chicken Pox, Measles, Mumps - Past Surgical History Head Surgeries/Procedures: Reports: None Cardiovascular Surgical History: Reports: None GI Surgical History: Reports: Appendectomy, Cholecystectomy, Colonoscopy Female Surgical History: Reports: Section Neurological Surgical History: Reports: None Musculoskeletal Surgical History: Reports: Arthroscopic Knee, Knee Replacement Other Musculoskeletal Surgeries/Procedures:: right knee replacement August 11 2020 Dermatological Surgical History: Reports: None Social & Family History - Family History Family Medical History: No Pertinent Family History - Caffeine Use Caffeine Use: Reports: None ED ROS GENERAL - Review of Systems Review Of Systems: Comprehensive ROS is negative, except as noted in HPI. ED EXAM, GENERAL - Physical Exam Exam: See Below Free Text/Narrative:: Alert, oriented in mild distress secondary of headache and dizziness with some mild nausea. HEENT is negative discharge or deformity there is no cyanosis nor pallor noted. She is laying with her hands over her eyes of which she is somewhat photophobic. Pupils are round equal light accommodating with no icterus nor injection. Neck is soft supple with no lymphadenopathy nor JVD appreciated. Nilan Barany testing is negative bilateral for any nystagmus induced but stating positioning did not worsen her dizziness. Thorax is clear no wheezes nor crackles are noted. Cardiac is regular I do not appreciate murmur. Abdomen soft no flank pain no abdominal tenderness. Trace edema to the lower extremities. Radial pulses correlate with apical heart rate. Reassessment of the pupils shows symmetric motion EOM intact with photophobia. #1 Interpretation EKG Date: 05/13/21 Time: 13:23 Rhythm: NSR Rate (Beats/Min): 56 [place]: Normal P-Wave: Present QRS: Normal ST-T: Normal QT: Normal Comparison: No Change (Rate change only variation from 10-03-2020) Course - Vital Signs Last Recorded V/S: Last Vital Signs Temp 97.9 F 05/13/21 14:00 Pulse 62 05/13/21 14:44 Resp 16 05/13/21 14:44 BP 120/62 05/13/21 14:44 Pulse Ox 98 05/13/21 14:44 - Orders/Labs/Meds Orders: Active Orders 24 hr Category Date Time Status EKG Documentation Completion [RC] ASDIRECTED Care 05/13/21 12:52 Active Peripheral IV Care [RC] . DIRECTED Care 05/13/21 12:50 Active Chest 1V Frontal [CR] Stat Exams 05/13/21 12:51 Ordered Sodium Chloride 0.9% [Saline Flush] Med 05/13/21 12:50 Active 10 ml FLUSH Q8HR PRN Peripheral IV Insertion Adult [OM.PC] Stat Oth 05/13/21 12:50 Ordered EKG 12 Lead [EK] Stat Ther 05/13/21 12:52 Ordered Medication Orders Sodium Chloride (Sodium Chloride 0.9% 10 Ml Syringe) 10 ml FLUSH Q8HR PRN PRN Reason: keep vein open Last Admin: 05/13/21 13:12 Dose: 10 ml Documented by: ISREAL Labs: Laboratory Tests 05/13/21 05/13/21 Range/Units 12:40 12:40 WBC 4.70 L (5.00-10.00) 10^3/uL RBC 4.75 (3.80-5.50) 10^6/uL Hgb 13.3 (12.0-16.0) g/dL Hct 41.7 (37.0-47.0) % MCV 87.8 (82.0-92.0) fL MCH 28.0 (27.0-31.0) pg MCHC 31.9 L (32.0-36.0) g/dL RDW 12.1 (11.5-14.5) % Plt Count 197 (150-400) 10^3/uL MPV 9.5 (7.4-10.4) fL Immature Gran % (Auto) 0.0 (0.0-5.0) % Neut % (Auto) 63.2 (50.0-70.0) % Lymph % (Auto) 28.5 (20.0-40.0) % [place] % (Auto) 5.3 (2.0-8.0) % Eos % (Auto) 1.9 (1.0-3.0) % Baso % (Auto) 1.1 H (0.0-1.0) % Neut # (Auto) 2.97 (2.50-7.00) 10^3/uL Lymph # (Auto) 1.34 (1.00-4.00) 10^3/uL [place] # (Auto) 0.25 (0.10-0.80) 10^3/uL Eos # (Auto) 0.09 L (0.10-0.30) 10^3/uL Baso # (Auto) 0.05 (0.00-0.10) 10^3/uL Immature Gran # (Auto) 0.00 (0.00-0.50) 10^3/uL Sodium 139 (136-145) mmol/L Potassium 4.1 (3.5-5.1) mmol/L Chloride 101 (98-107) mmol/L Carbon Dioxide 28.1 (21.0-32.0) mmol/L Anion Gap 14.0 (5-15) mmol/L BUN 14 (7-18) mg/dL Creatinine 0.74 (0.51-1.17) mg/dL Est Cr Clr Drug Dosing 70.01 mL/min Estimated GFR (MDRD) > 60 mL/min Glucose 111 (70-140) mg/dL Calcium 8.7 (8.7-10.3) mg/dL Total Bilirubin 0.4 (0.2-1.0) mg/dL AST 15 (15-37) U/L ALT 30 (14-63) U/L Alkaline Phosphatase 140 H (46-116) U/L Total Protein 6.8 (6.4-8.2) g/dL Albumin 3.54 (3.40-5.00) g/dL Meds: Medications Generic Name Dose Route Start Last Admin Trade Name Freq PRN Reason Stop Dose Admin Sodium Chloride 10 ml 05/13/21 12:50 05/13/21 13:12 Sodium Chloride 0.9% 10 Ml Syringe FLUSH 10 ml Q8HR PRN Administration keep vein open Discontinued Medications Generic Name Dose Route Start Last Admin Trade Name Freq PRN Reason Stop Dose Admin Sodium Chloride 1,000 mls @ 999 mls/hr 05/13/21 13:19 05/13/21 13:37 Normal Saline IV 05/13/21 14:19 999 mls/hr .BOLUS ONE Administration Ketorolac Tromethamine 30 mg 05/13/21 12:53 05/13/21 13:02 Ketorolac 30 Mg/Ml Sdv IVPUSH 05/13/21 12:54 30 mg ONETIME ONE Administration Ketorolac Tromethamine 30 mg 05/13/21 12:54 05/13/21 13:00 Ketorolac 30 Mg/Ml Sdv IM 05/13/21 12:55 30 mg ONETIME ONE Administration Meclizine HCl 25 mg 05/13/21 12:53 05/13/21 13:11 Meclizine 25 Mg Tab PO 05/13/21 12:54 25 mg ONETIME ONE Administration Ondansetron HCl 8 mg 05/13/21 12:52 05/13/21 13:12 Ondansetron 4 Mg/2 Ml Sdv IVPUSH 05/13/21 12:53 8 mg ONETIME ONE Administration - Re-Assessments/Exams Free Text/Narrative Re-Assessment/Exam: 05/13/21 13:20 When positioning from right lateral to seated upright for chest x-ray/portable, extreme nausea ensued. No emesis occurred. 05/13/21 13:23 Significant other advises me that has had some increased stress as a very close friend this past week and that they were attending with family the past few days. He states that she is not had her normal water intake and is also not been eating regular. Free Text/Narrative Re-Assessment/Exam: 05/13/21 14:13 Acknowledges that she has been under some additional stress as well as decreased water intake and may be some slight increase in her Coca-Cola drinking. Typical day is 6-20 ounce bottles of Coca-Cola. Discussed decreasing Coke intake and also discussed increasing water intake. States she is feeling better at this time. We discussed that her labs are looking good as well as x-ray reports. 05/13/21 14:48 Free Text/Narrative Re-Assessment/Exam: 05/13/21 14:42 Feels very good at this time at the conclusion of 1 L of fluid and is willing to be discharged home. She acknowledges she will try decrease if not quit her Coca-Cola and promises to drink more water daily Departure - Departure Time of Disposition: 14:42 Disposition: Home, Self-Care 01 Condition: Good Clinical Impression: Dizziness, Headache above the eye region - Discharge Information *PRESCRIPTION DRUG MONITORING PROGRAM REVIEWED*: Not Applicable *COPY OF PRESCRIPTION DRUG MONITORING REPORT IN PATIENT PERRY: Not Applicable Instructions: Dizziness, [id number], Migraine Headache Referrals: Rosi Mitchell MD [Primary Care Provider] - Forms: ED Department Discharge Additional Instructions: You need to go home, rest, avoid irritations such as bright lights and noise. You need to increase your water intake. You need to decrease your Coca-Cola intake if not stop completely as it precipitates headaches. Continue all your medications as directed. Return to the emergency department if symptoms should recur. Contact your clinic for recheck in the next week if any symptoms or concerns should exist. Sepsis Event Note (ED) - Evaluation Sepsis Screening Result: No Definite Risk - Focused Exam Vital Signs: Vital Signs Temp Pulse Resp BP Pulse Ox 05/13/21 14:44 62 16 120/62 98 05/13/21 14:00 97.9 F 60 16 124/62 97 05/13/21 12:34 97.3 F 63 18 182/71 H 99 - Problem List & Annotations (1) Headache above the eye region SNOMED Code(s): 45136544 Code(s): R51 - HEADACHE * DO NOT USE * Status: Acute Priority: High Current Visit: Yes (2) Dizziness SNOMED Code(s): 763560833, 712086327 Code(s): R42 - DIZZINESS AND GIDDINESS Status: Acute Priority: High Current Visit: Yes - Problem List Review Problem List Initiated/Reviewed/Updated: Yes - My Orders Last 24 Hours: My Active Orders 05/13/21 12:50 Peripheral IV Care [RC] . DIRECTED Sodium Chloride 0.9% [Saline Flush] 10 ml FLUSH Q8HR PRN Peripheral IV Insertion Adult [OM.PC] Stat 05/13/21 12:51 Chest 1V Frontal [CR] Stat 05/13/21 12:52 EKG Documentation Completion [RC] ASDIRECTED EKG 12 Lead [EK] Stat - Assessment/Plan Last 24 Hours: My Active Orders 05/13/21 12:50 Peripheral IV Care [RC] . DIRECTED Sodium Chloride 0.9% [Saline Flush] 10 ml FLUSH Q8HR PRN Peripheral IV Insertion Adult [OM.PC] Stat 05/13/21 12:51 Chest 1V Frontal [CR] Stat 05/13/21 12:52 EKG Documentation Completion [RC] ASDIRECTED EKG 12 Lead [EK] Stat Plan: You need to go home, rest, avoid irritations such as bright lights and noise. You need to increase your water intake. You need to decrease your Coca-Cola intake if not stop completely as it precipitates headaches. Continue all your medications as directed. Return to the emergency department if symptoms should recur. Contact your clinic for recheck in the next week if any symptoms or concerns should exist.
[2021-05-13] MEDS ORDERED: Sodium Chloride 0.9% 10 ML Syringe FLUSH PRN (12:50)
[2021-05-13] MEDS ORDERED: Ondansetron 4 MG/2 ML SDV IVPUSH ONE (12:52)
[2021-05-13] MEDS ORDERED: Ketorolac 30 MG/ML SDV IVPUSH ONE (12:53)
[2021-05-13] MEDS ORDERED: Meclizine 25 MG Tab PO ONE (12:53)
[2021-05-13] MEDS ORDERED: Ketorolac 30 MG/ML SDV IM ONE (12:54)
[2021-05-13] MEDS ORDERED: Sodium Chloride 0.9% 1,000 ML IV ONE (13:19)
[2021-05-13 13:34] LABS: CHLORIDE,CL 101 mmol/L (98-107); SODIUM,NA 139 mmol/L (136-145)
--- NOTE | 2021-05-13 13:51 | CT ---
[id number] CT/CT Head WO IV EXAM: CT Head WO IV CLINICAL DATA: DIZZINESS, WORST HEADACHE. COMPARISON STUDY: None FINDINGS: No intracranial hemorrhage, extra-axial fluid collection, mass, or acute ischemia. Generalized parenchymal atrophy with scattered areas of nonspecific white matter disease, commonly seen as sequela of chronic microvascular ischemia. Soft tissues are unremarkable. Paranasal sinuses and mastoid air cells are clear. IMPRESSION: No acute intracranial findings. Carl Chaparro DO 05/13/21 4818 Thank you for allowing us to participate in the care of your patient.
--- NOTE | 2021-05-13 17:19 | CR ---
[id number] RAD/RAD Chest PA or AP 1V EXAM: RAD Chest PA or AP 1V INDICATION: DIZZINESS, HEADACHE. COMPARISON: 02/16/2020. DISCUSSION: Cardiomediastinal silhouette is normal in size and contour. No infiltrate, effusion, pneumothorax, or edema. IMPRESSION: No acute cardiopulmonary abnormality. Carl Chaparro DO 05/13/21 1718 Thank you for allowing us to participate in the care of your patient.
== END 2021-05-13 14:45 | disposition home or self-care (01) ==
LOC: KA.ED 12:28
DX: R42 Dizziness and giddiness (principal); R51.9 Headache, unspecified; I10 Essential (primary) hypertension; E78.00 Pure hypercholesterolemia, unspecified; M19.90 Unspecified osteoarthritis, unspecified site; E66.9 Obesity, unspecified; Z68.39 Body mass index [BMI] 39.0-39.9, adult; Z88.2 Allergy status to sulfonamides; Z79.82 Long term (current) use of aspirin; Z79.899 Other long term (current) drug therapy
CPT/HCPCS: 36415; 70450; 71045; 80053; 85025; 93005; 96372; 96374; 96375; 99284; 99284-25; A9270-GY; J1885; J2405; J7030